=== PATIENT | male | born 1980 | race Caucasian/White ===

== ENCOUNTER 2018-01-05 16:37 | Emergency (ER) ==
[2018-01-05] MEDS ORDERED: PENICILLIN V POTASSIUM 500 MG TABLET PO ONE (17:41)
[2018-01-05] MEDS ORDERED: IBUPROFEN 800 MG TABLET PO ONE (17:41)
== END 2018-01-05 17:45 | disposition left against medical advice (07) ==
LOC: ER 16:37
DX: Z53.20 Procedure and treatment not carried out because of patient's decision for unspecified reasons (principal)

== ENCOUNTER 2018-05-15 18:05 | Emergency (ER) | payer SELFPAY ==
[2018-05-15] MEDS ORDERED: CIPROFLOXACIN HCL/DEXAMETH OTIC DROP 7.5 ML AD ONE (18:31)
[2018-05-15] MEDS ORDERED: LIDOCAINE 2% VISCOUS SOLN 20 ML UDCUP PO ONE (18:34)
--- NOTE | 2018-05-15 18:37 | ER Document Report ---
ED ENT - General Chief Complaint: Ear Pain Stated Complaint: EARACHE Time Seen by Provider: 05/15/18 18:27 Mode of Arrival: Ambulatory Information source: Patient Notes: 38-year-old male presents to ED for complaint of pain to the right ear and behind the ear starting yesterday. He states the pain has gotten him off balance. 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 Patient is alert and oriented respirations regular and unlabored speaking in full sentences and walks with a even steady gait at this time. TRAVEL OUTSIDE OF THE [place] IN LAST 30 DAYS: No - HPI Patient complains to provider of: Ear problem Onset: Yesterday Onset/Duration: Gradual Quality of pain: Other - throbbing Severity: Severe Pain Level: 5 Location of pain: Ears Associated symptoms: Ear pain Similar symptoms previously: No Recently seen / treated by doctor: No - Related Data Allergies/Adverse Reactions: No Known Allergies Allergy (Verified 05/15/18 18:07) Past Medical History - General Information source: Patient - Social History Smoking Status: Current Every Day Smoker Cigarette use (# per day): Yes - 2-3 ppd Chew tobacco use (# tins/day): No Smoking Education Provided: Yes - 4 min Frequency of alcohol use: Heavy Drug Abuse: None Lives with: Family Family History: Reviewed & Not Pertinent Patient has suicidal ideation: No Patient has homicidal ideation: No - Past Medical History Cardiac Medical History: Reports: None Pulmonary Medical History: Reports: None EENT Medical History: Reports: None Neurological Medical History: Reports: None Endocrine Medical History: Reports: None Renal/ Medical History: Reports: None Malignancy Medical History: Reports None GI Medical History: Reports: None Musculoskeletal Medical History: Reports None, Reports Hx Musculoskeletal Deformity, Reports Hx Musculoskeletal Trauma Skin Medical History: Reports None Psychiatric Medical History: Reports: None Traumatic Medical History: Reports: None Infectious Medical History: Reports: None Past Surgical History: Reports: Hx Orthopedic Surgery - left hip x 2 Review of Systems - Review of Systems Constitutional: No symptoms reported EENT: Ear pain Cardiovascular: No symptoms reported Respiratory: No symptoms reported Gastrointestinal: Nausea Genitourinary: No symptoms reported Male Genitourinary: No symptoms reported Musculoskeletal: No symptoms reported Skin: No symptoms reported Hematologic/Lymphatic: No symptoms reported Neurological/Psychological: No symptoms reported Physical Exam - Vital signs Vitals: Temp Pulse Resp BP Pulse Ox 98.1 F 80 16 112/72 96 05/15/18 18:15 05/15/18 18:15 05/15/18 18:15 05/15/18 18:15 05/15/18 18:15 Interpretation: Normal - General General appearance: Appears well, Alert - HEENT Head: Normocephalic, Atraumatic Eyes: Normal Pupils: PERRL Ears: Other - Tender with any movement to the his outer ear External canal: Erythema, Swollen Tympanic membrane: Normal Sinus: Normal Nasal: Swelling, Clear rhinorrhea Mouth/Lips: Normal Mucous membranes: Normal Pharynx: Normal Neck: Normal - Respiratory Respiratory status: No respiratory distress Chest status: Nontender Breath sounds: Normal Chest palpation: Normal - Cardiovascular Rhythm: Regular Heart sounds: Normal auscultation Murmur: No - Abdominal Inspection: Normal Distension: No distension Bowel sounds: Normal Tenderness: Nontender Organomegaly: No organomegaly - Back Back: Normal, Nontender - Extremities General upper extremity: Normal inspection, Nontender, Normal color, Normal ROM , Normal temperature General lower extremity: Normal inspection, Nontender, Normal color, Normal ROM , Normal temperature, Normal weight bearing. No: Yue's sign - Neurological Neuro grossly intact: Yes Cognition: Normal Orientation: AAOx4 [place] Coma Scale Eye Opening: Spontaneous [place] Coma Scale Verbal: Oriented [place] Coma Scale Motor: Obeys Commands [place] Coma Scale Total: 15 Speech: Normal Motor strength normal: LUE, RUE, LLE, RLE Sensory: Normal - Psychological Associated symptoms: Normal affect, Normal mood - Skin Skin Temperature: Warm Skin Moisture: Dry Skin Color: Normal Course - Re-evaluation Re-evalutation: 05/15/18 20:04 Patient was treated with Ciprodex eardrops to the right ear 4 drops. He then had viscous lidocaine into the right ear. Patient verbalized understanding of instructions to use the eardrops 4 drops twice a day and the viscous lidocaine a small amount to the ear canal every 4 hours as needed for pain. able to verbalize understanding of how to administer medication. Patient verbalized understanding of need to follow-up with the ears nose and throat on Friday by telephone to schedule a follow-up appointment. Patient was given a prescription for Zofran for his nausea. He states he has not vomited just has been nausea from the pain. Patient was discharged home with list of local doctors and ENT. - Vital Signs Vital signs: Temp Pulse Resp BP Pulse Ox 98.3 F 76 16 114/79 98 05/15/18 19:02 05/15/18 19:02 05/15/18 19:02 05/15/18 19:02 05/15/18 19:02 Discharge - Discharge Clinical Impression: Nausea Otitis externa Qualifiers: Otitis externa type: unspecified type Chronicity: acute Laterality: right Qualified Code(s): H60.501 - Unspecified acute noninfective otitis externa, right ear Condition: Stable Disposition: HOME, SELF-CARE Additional Instructions: OTITIS EXTERNA: You have otitis externa -- an infection of the outer ear canal. This can be very painful. It's sometimes called "swimmer's ear," because it often occurs after prolonged water exposure. Many things, such as earwax and dirt in the ear, can contribute to it. The usual treatment is antibiotic/antiinflammatory ear drops. Occasionally , a wick will be placed in the ear to draw in the medicine. If the infection is severe, an oral antibiotic may be prescribed. Pain medication is often needed. Avoid getting water in the ear. Outer ear infections often take longer to heal than you might expect. Some tenderness and ache in the ear may persist for about two weeks. See your physician if you fail to improve as expected. Call the doctor at once if you develop fever, increasing swelling (particularly if it makes your ear "poke out"), severe headache, stiff neck, or decreased hearing. USE OF EAR DROPS: Your ear drops won't do much good if they don't get all the way in. To help the ear drops penetrate all the way to the ear drum, use the following technique. If you encounter problems of any kind, notify the physician. (1) Lay your head sideways on a pillow. (2) Place the dropper tip just barely inside the ear canal, almost touching the bottom side of the canal. The liquid is tolerated better on the bottom of the canal. (3) Squeeze out the appropriate amount of medicine, and remove the dropper. (4) Grab the back of the ear (just behind the ear canal) between your index finger and thumb. (5) Tug up, then let the ear drop back. Repeat several times. This pumps the medicine down. (6) Wait five minutes, then place a cotton ball in the ear canal to catch and hold the medicine. CIPROFLOXACIN: You have been given an antibacterial agent, ciprofloxacin (Cipro). This medicine is not related to the penicillins, sulfas, cephalosporins, or tetracyclines. It is often given to patients who are allergic to these drugs. It has been chosen for you either because other drugs are not appropriate, or because of the nature of your problem. Cipro should not be taken with antacids, as these can decrease its effectiveness. It can be taken without regard to meals. CIPRO SHOULD NOT BE TAKEN BY CHILDREN, NURSING WOMEN, OR WOMEN. Although Cipro is usually well-tolerated, common side effects can include nausea and diarrhea. Contact your doctor if you experience any unusual symptoms while on this medication, such as joint pain or swelling, shortness of breath, wheezing, faintness, or hives. USE OF ACETAMINOPHEN (Tylenol): Acetaminophen may be taken for pain relief or fever control. It's much safer than aspirin, offering a wider range of "safe" dosages. It is safe during . Some brand names are Tylenol, Panadol, Datril, Anacin 3, Tempra, and Liquiprin. Acetaminophen can be repeated every four hours. The following are maximum recommended dosages: WEIGHT Dose Drops Elixir Chewable( 80mg) (LBS.) drprs=droppers tsp=teaspoon 6 40 mg 0.4 ml (1/2) 6-11 80 mg 0.8 ml (full) tsp 1 tab 12-16 120 mg 1 1/2 drprs 3/4 tsp 1 1/2 tabs 17-23 160 mg 2 drprs 1 tsp 2 tabs 24-30 240 mg 3 drprs 1 1/2 tsp 3 tabs 30-35 320 mg 2 tsp 4 tabs 36-41 360 mg 2 1/4 tsp 4 1/2 tabs 42-47 400 mg 2 1/2 tsp 5 tabs 48-53 480 mg 3 tsp 6 tabs 54-59 520 mg 3 1/4 tsp 6 1/2 tabs 60-64 560 mg 3 1/2 tsp 7 tabs 65-70 600 mg 3 3/4 tsp 7 1/2 tabs 71-76 640 mg 4 tsp 8 tabs 77-82 720 mg 4 1/2 tsp 9 tabs 83-88 800 mg 5 tsp 10 tabs >89 pounds or adults 650 mg to 900 mg Acetaminophen can be repeated every four hours. Maximum dose not to exceed 4000 mg a day. These maximum recommended dosages are slightly higher than the dosages written on the product container, but these dosages are very safe and below the toxic dosage for acetaminophen. Nausea or Vomiting, Nonspecific Vomiting (or nausea without vomiting) can be caused by many different problems. Of course, it can mean that something's wrong with the stomach, such as "stomach flu," ulcers, or inflammation. But it can also be a symptom of a problem that has nothing to do with the stomach or intestines. Vomiting is common with severe headaches, earaches, and tonsillitis. We see it with pneumonia or heart attacks. Drugs can cause nausea. Many abdominal problems cause vomiting; for example, gallstones, kidney stones, pancreatitis, and intestinal obstruction (blocked bowels). In most cases, curing the vomiting depends on fixing the problem that caused it. For temporary relief, we may use an anti-nausea medicine. For home use, we can prescribe suppositories, chewable pills, pills that dissolve in the mouth, or liquid anti-nausea drugs. If the vomiting seems to be caused by a problem in the stomach, acid-suppressing drugs may be prescribed as well. It's important to avoid dehydration. Sip clear liquids. Take increasing amounts of fluid over the first 24 hours. Then start small amounts of bland foods (such as dry toast, applesauce, mashed potato). Avoid aspirin, tobacco, and alcohol. Gradually resume your usual diet. If the vomiting worsens, if the problem that's making you vomit worsens, or if there's evidence of bleeding in the stomach (such as black, tarry stool, bloody or black vomit, or lightheadedness), you should return immediately. Call your doctor if you aren't improved in 24 to 36 hours. Antinausea Medication You have been given a medication to suppress nausea and vomiting. This type of medication can be given as a shot, pill, or suppository. It will usually last for many hours. Pills and shots usually last six to eight hours, suppositories last about 12 hours. For the typical illness, only one or two doses of the medication may be necessary. Mild lightheadedness may occur. This type of medicine can cause drowsiness. Do not drive or operate dangerous machinery while under its influence. Do not mix with alcohol. See your doctor at once if you have muscle spasms or tightness, or uncontrollable motions (particularly of the neck, mouth, or jaw). Persistent vomiting or severe lightheadedness should also be evaluated by the physician. FOLLOW-UP CARE: If you have been referred to a physician for follow-up care, call the physician s office for an appointment as you were instructed or within the next two days. If you experience worsening or a significant change in your symptoms, notify the physician immediately or return to the Emergency Department at any time for re-evaluation. Prescriptions: Ondansetron HCl [Zofran 8 mg Tablet] 8 mg PO Q8HP PRN #30 tablet PRN Reason: Ciprofloxacin HCl/Dexameth [Ciprodex Otic Suspension 7.5 ml Bottle] 4 drop RT_ EAR BID #1 bottle Forms: Smoking Cessation Education, Return to Work Referrals: ISAMAR MORRIS DO [ASSOCIATE] - Follow up as needed
[2018-05-15 19:06] VITALS: BP 114/79
== END 2018-05-15 19:06 | disposition home or self-care (01) ==
LOC: ER 18:05
DX: H60.501 Unspecified acute noninfective otitis externa, right ear (principal); R11.0 Nausea; H92.01 Otalgia, right ear; F17.210 Nicotine dependence, cigarettes, uncomplicated
CPT/HCPCS: 99406; 99282; J3490 ×2

== ENCOUNTER 2018-09-03 17:28 | Emergency (ER) | payer SELFPAY ==
--- NOTE | 2018-09-03 17:35 | ER Document Report ---
ED General - General Stated Complaint: POSSIBLE OVERDOSE Time Seen by Provider: 09/03/18 17:31 TRAVEL OUTSIDE OF THE [place] IN LAST 30 DAYS: No - HPI Notes: Patient is a 38-year-old male that presents to the emergency department for chief complaint of overdose. Patient was dropped off at the front door by a girlfriend stating that he overdosed. Patient was apneic and unresponsive at presentation. After 8 mg IV Narcan he had returned to spontaneous respirations and mentation. He states he snorted what he believed was cocaine. He has no current complaints Past Medical History: Negative Past Surgical History: Negative Social History: Cocaine abuse, opiate abuse, Daily tobacco, occasional alcohol Family History: Reviewed and noncontributory for presenting illness Allergies: Reviewed, see documented allergy list. REVIEW OF SYSTEMS: CONSTITUTIONAL : No fever No chills No diaphoresis No recent illness EENT: No vision changes No congestion No sore throat CARDIOVASCULAR: No chest pain No palpitations RESPIRATORY: No shortness of breath No cough No difficulty breathing GASTROINTESTINAL: No abdominal pain No nausea No vomiting No diarrhea GENITOURINARY: No dysuria No hematuria No difficulty urinating MUSCULOSKELETAL: No back pain No leg pain No arm pain SKIN: No rashes No lesions LYMPHATIC: No swollen, enlarged glands. NEUROLOGICAL: No lightheadedness No headache No weakness No paresthesias PSYCHIATRIC: No anxiety No depression PHYSICAL EXAMINATION: Vital signs reviewed, nursing noted reviewed. GENERAL: Well-appearing, well-nourished and in no acute distress. HEAD: Atraumatic, normocephalic. EYES: Pinpoint bilaterally, extraocular movements intact, sclera anicteric, conjunctiva are injected. ENT: nares patent, oropharynx clear without exudates. Moist mucous membranes. NECK: Normal range of motion, supple without lymphadenopathy LUNGS: Breath sounds clear to auscultation bilaterally and equal. No wheezes rales or rhonchi. HEART: Tachycardic and regular rhythm without murmurs ABDOMEN: Soft, nontender, normoactive bowel sounds. No rebound, guarding, or rigidity. No masses appreciated. EXTREMITIES: Nontender, good range of motion, no pitting or edema. NEUROLOGICAL: No focal neurological deficits. Moves all extremities spontaneously Motor and sensory grossly intact on exam. PSYCH: Normal mood, normal affect. SKIN: Warm, Dry, normal turgor, no rashes or lesions noted on exposed skin - Related Data Allergies/Adverse Reactions: No Known Allergies Allergy (Verified 09/03/18 17:30) Past Medical History - Social History Smoking Status: Current Every Day Smoker Family History: Reviewed & Not Pertinent Renal/ Medical History: Denies: Hx Peritoneal Dialysis Musculoskeletal Medical History: Reports Hx Musculoskeletal Deformity, Reports Hx Musculoskeletal Trauma Past Surgical History: Reports: Hx Orthopedic Surgery - left hip x 2 Physical Exam - Vital signs Vitals: BP 132/94 H 09/03/18 17:30 Course - Re-evaluation Re-evalutation: 09/03/18 17:33 Vitals reviewed. Nursing notes reviewed. Patient presented apneic with a GCS of 3, he had great dusky skin. He was started on bag valve ventilation with nasal airway, his oxygenation quickly improved to 99% and skin tone returned to normal. After 8 mg IV Narcan patient woke up and reported that he snorted drugs. He believed it was cocaine. Patient likely snorted fentanyl or heroin given his response to Narcan and clinical presentation. He was placed on telemetry monitoring. He currently has a GCS of 15 and is oxygenating well on room air. He is in no acute distress. He will be monitored in the ER 09/03/18 18:14 Patient has remained stable while he was in the emergency room. He is awake and conversational. His girlfriend is at bedside now. 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 He now does state that he knew it was heroin when he snorted it. Patient's girlfriend states they have Narcan at home. Patient does not wish to stay for monitoring. He has capacity to understand his medical decision making. Patient was told that his Narcan may wear off before the hair when he ingested which could result in him becoming unresponsive again. Him and the girlfriend are made aware of this. Girlfriend states she has Narcan at home and will watch him and not allow him to go to sleep. She states she will give him Narcan and call 911 if he becomes unresponsive again. Patient would like to leave AGAINST MEDICAL ADVICE. After performing a Medical Screening Examination, I spoke with the patient at length in regards to leaving the hospital against medical advice. I discussed evaluation for their presenting complaint and recommended further evaluation. I do not believe the patient should leave but the patient is alert oriented x4, understands the risks and benefits of staying and leaving including disability and . Pt understands that they can return at any time for further care and is more than welcome to do so. Pt verbalizes this understanding. - Vital Signs Vital signs: Temp Pulse Resp BP Pulse Ox 20 128/84 H 99 09/03/18 17:46 09/03/18 17:46 09/03/18 17:46 Critical Care Note - Critical Care Note Total time excluding time spent on procedures (mins): 35 Comments: Patient apneic and unresponsive at presentation. Respiratory status stabilized. Potential for respiratory decompensation. Frequent re-evaluations. Discharge - Discharge Clinical Impression: Opiate overdose Qualifiers: Encounter type: initial encounter Injury intent: accidental or unintentional Qualified Code(s): T40.601A - Poisoning by unspecified narcotics, accidental (unintentional), initial encounter Condition: Stable Disposition: HOME, SELF-CARE Instructions: Overdose ([facility]) Additional Instructions: Please return to the emergency department if you have any worsening, or concern of your symptoms. Please return to the emergency department if you develop chest pain, difficulty breathing, severe abdominal pain, or ongoing vomiting. Please follow-up with your primary care physician in 2-3 days and any other recommended physicians. If prescribed, take all medications as directed. If you have any questions or concerns do not hesitate to return the emergency department for evaluation. Do not snort or inject any controlled substances including cocaine or heroin Forms: Smoking Cessation Education Referrals: [facility] [Provider Group] - Follow up as needed [facility] [Provider Group] - Follow up as needed
[2018-09-03] MEDS ORDERED: NALOXONE HCL INJ 2 MG/2 ML DISP.SYRIN ONE (17:36)
[2018-09-03 17:57] VITALS: BP 128/84
== END 2018-09-03 17:58 | disposition home or self-care (01) ==
LOC: ER 17:28
DX: T40.5X1A Poisoning by cocaine, accidental (unintentional), initial encounter (principal); X58.XXXA Exposure to other specified factors, initial encounter; F17.200 Nicotine dependence, unspecified, uncomplicated
CPT/HCPCS: 99285

== ENCOUNTER 2018-09-22 17:24 | Emergency (ER) | payer SELFPAY ==
[2018-09-22] MEDS ORDERED: NORMAL SALINE 1000 ML 1,000 ML IV ONE (17:26)
[2018-09-22] MEDS ORDERED: NALOXONE HCL INJ 2 MG/2 ML DISP.SYRIN IV ONE (17:27)
--- NOTE | 2018-09-22 17:34 | ER Document Report ---
ED General - General Chief Complaint: Possible Overdose Stated Complaint: POSSIBLE OD Time Seen by Provider: 09/22/18 17:26 TRAVEL OUTSIDE OF THE [place] IN LAST 30 DAYS: No - HPI Patient complains to provider of: Overdose Notes: Patient was brought to the ER by private vehicle arrived in the ambulance bay tanker driver of vehicle was apparently being on the annulus by doors our staff found the patient slumped over mcrae passenger side tanker driver of vehicle did indicate to our staff that the patient had an overdose more likely of heroin. Patient was placed on the stretcher and then taken to the trauma bay #1 this is where I made first contact with the patient patient skin color was mcrae patient was to be apneic with pinpoint pupils. Resuscitation efforts were initiated patient was g iven supplemental oxygen via a BVM by myself patient was placed on the monitor and IV administration of Narcan was initiated by nursing staff. We did remove the patient's clothing to evaluate the patient further. During the bagging process the patient's skin color did improve Patient was given 2 mg of Narcan. Patient did respond appropriately waking up. At this time patient denying that he used any heroin. Patient states he did use IV drugs in the past however is not used anything recently. Patient otherwise was monitored and examination continued - Related Data Allergies/Adverse Reactions: No Known Allergies Allergy (Verified 09/03/18 17:30) Past Medical History - Social History Smoking Status: Current Every Day Smoker Chew tobacco use (# tins/day): No Frequency of alcohol use: Occasional Family History: Reviewed & Not Pertinent Patient has suicidal ideation: No Patient has homicidal ideation: No Renal/ Medical History: Denies: Hx Peritoneal Dialysis Musculoskeletal Medical History: Reports Hx Musculoskeletal Deformity, Reports Hx Musculoskeletal Trauma Past Surgical History: Reports: Hx Orthopedic Surgery - left hip x 2 Review of Systems - Review of Systems Constitutional: Other - Overdose EENT: No symptoms reported Cardiovascular: No symptoms reported Respiratory: No symptoms reported Gastrointestinal: No symptoms reported Genitourinary: No symptoms reported Male Genitourinary: No symptoms reported Musculoskeletal: No symptoms reported Skin: No symptoms reported Hematologic/Lymphatic: No symptoms reported Neurological/Psychological: No symptoms reported -: Yes All other systems reviewed and negative Physical Exam - Vital signs Vitals: Resp Pulse Ox 18 97 09/22/18 17:30 09/22/18 17:30 Interpretation: Normal - General General appearance: Appears well, Alert - HEENT Head: Normocephalic, Atraumatic Eyes: Normal Pupils: PERRL - Respiratory Respiratory status: No respiratory distress Chest status: Nontender Breath sounds: Normal Chest palpation: Normal - Cardiovascular Rhythm: Regular Heart sounds: Normal auscultation Murmur: No - Abdominal Inspection: Normal Distension: No distension Bowel sounds: Normal Tenderness: Nontender Organomegaly: No organomegaly - Back Back: Normal, Nontender - Extremities General upper extremity: Normal inspection, Nontender, Normal color, Normal ROM, Normal temperature General lower extremity: Normal inspection, Nontender, Normal color, Normal ROM, Normal temperature, Normal weight bearing. No: Yue's sign - Neurological Neuro grossly intact: Yes Cognition: Normal Orientation: AAOx4 [place]a Coma Scale Eye Opening: Spontaneous [place] Coma Scale Verbal: Oriented [place] Coma Scale Motor: Obeys Commands [place]ell Coma Scale Total: 15 Speech: Normal Motor strength normal: LUE, RUE, LLE, RLE Sensory: Normal - Psychological Associated symptoms: Normal affect, Normal mood - Skin Skin Temperature: Warm Skin Moisture: Dry Skin Color: Normal Notes: Heavily tattooed Course - Re-evaluation Re-evalutation: 09/22/18 18:32 Patient continued to deny any opiate or heroin use. [facility] that showed an overdose in August at which time the patient did leave AGAINST MEDICAL ADVICE or very soon after patient received Narcan. Upon initially waking the patient up with Narcan patient did agree to stay for further evaluation nursing staff that explained to me that the patient is reques ting leave the reevaluate the with the patient the explained to the patient that he would have with our intervention more likely this was due to underlying heroin or opiate use and abuse. Patient stated understanding however states that he is a no x3 able to give me the date president and where he is at requesting to be discharged. At this time patient understands that the Narcan does not last forever and if he does have a long opiate in his system that he can become apneic not breathe resulting in patient states understanding of this they would make medical decision patient was signed out AGAINST MEDICAL ADVICE - Vital Signs Vital signs: Temp Pulse Resp BP Pulse Ox 18 122/96 H 97 09/22/18 17:30 09/22/18 17:44 09/22/18 17:30 - Laboratory Laboratory results interpreted by me: 09/22/18 17:26 POC Glucose 126 H Critical Care Note - Critical Care Note Total time excluding time spent on procedures (mins): 35 Comments: Time spent direct evaluation of the patient coming in for an overdose restored distress requiring bag valve ventilation until Narcan could be administered Discharge - Discharge Clinical Impression: Respiratory distress due to overdose Overdose Qualifiers: Encounter type: initial encounter Injury intent: accidental or unintentional Qualified Code(s): T50.901A - Poisoning by unspecified drugs, medicaments and biological substances, accidental (unintentional), initial encounter Condition: Good Disposition: HOME, SELF-CARE Instructions: Instructions for Home Care Following a Drug Overdose ([facility]), Overdose ([facility]) Additional Instructions: You almost today. When you arrived to the ER you were not breathing your skin was mcrae and you barely had a pulse. We were able to give you a medication called Narcan. This medication is used for opiate overdoses such as heroin. Please avoid using any illicit drugs Drink plenty of fluids
[2018-09-22 17:49] VITALS: BP 122/96
== END 2018-09-22 17:49 | disposition home or self-care (01) ==
LOC: ER 17:24
DX: T50.901A Poisoning by unspecified drugs, medicaments and biological substances, accidental (unintentional), initial encounter (principal); Y92.9 Unspecified place or not applicable; Z53.21 Procedure and treatment not carried out due to patient leaving prior to being seen by health care provider; F17.200 Nicotine dependence, unspecified, uncomplicated
CPT/HCPCS: 99285; 96374; 82962; J2310

== ENCOUNTER 2018-09-26 16:00 | Emergency (ER) | payer SELFPAY ==
[2018-09-26] MEDS ORDERED: NALOXONE HCL INJ 2 MG/2 ML DISP.SYRIN ONE (16:06)
--- NOTE | 2018-09-26 16:11 | ER Document Report ---
ED General - General Mode of Arrival: Carried Information source: Patient, Relative TRAVEL OUTSIDE OF THE [place] IN LAST 30 DAYS: No - General Chief Complaint: Overdose Stated Complaint: POSSIBLE OVERDOSE Time Seen by Provider: 09/26/18 16:00 Notes: Patient is a 38 year old male with depression, anxiety, bipolar disorder and a history of opioid abuse presents to the emergency department due to an heroin overdose. Patient was initially unresponsive and apneic upon arrival. According to at bedside, the patient has been 1 year clean of drug abuse but recently started using again 1 month ago. She states the patient injected the heroin in his arm and and states he did so because he was "sick". states the patient has an appointment with a suboxone clinic next week. When the patient awakens, he states he does not remember how much heroin he injected and further states he does not know why he injected. He denies suicidal ideation. Of significance, patient was seen in this emergency department 3x within a month due to similar issues. (BRANDO HELMS) - Related Data Allergies/Adverse Reactions: No Known Allergies Allergy (Verified 09/26/18 16:10) Past Medical History - General Information source: Patient - Social History Smoking Status: Unknown if Ever Smoked Drug Abuse: Heroin Family History: Reviewed & Not Pertinent Musculoskeletal Medical History: Reports Hx Musculoskeletal Deformity, Reports Hx Musculoskeletal Trauma Past Surgical History: Reports: Hx Orthopedic Surgery - left hip x 2 Review of Systems - Review of Systems Constitutional: No symptoms reported EENT: No symptoms reported Cardiovascular: No symptoms reported Respiratory: No symptoms reported Gastrointestinal: No symptoms reported Genitourinary: No symptoms reported Male Genitourinary: No symptoms reported Musculoskeletal: No symptoms reported Skin: No symptoms reported Hematologic/Lymphatic: No symptoms reported Neurological/Psychological: No symptoms reported -: Yes All other systems reviewed and negative Physical Exam - Vital signs Vitals: Resp Pulse Ox 13 89 L 09/26/18 16:02 09/26/18 16:02 - Notes Notes: GENERAL: Initially unresponsive and apenic. After administering 2nd doses of Narcan, patient began to have spontaneous respirations. HEAD: Normocephalic, atraumatic. EYES: Pupils equal, pinpoint, and minimally reactive to light. Extraocular movements intact. ENT: Oral mucosa moist, tongue midline. NECK: Full range of motion. Supple. Trachea midline. LUNGS: Initially apneic. After 2nd dose of narcan, became tachypneic. Clear to auscultation bilaterally, no wheezes, rales, or rhonchi. No respiratory distress. HEART: Tachycardic. No murmurs, gallops, or rubs. ABDOMEN: Soft, non-tender. Non-distended. Hyperactive bowel sounds. EXTREMITIES: Initially not moving. After 2nd dose of narcan, moves all 4 extremities spontaneously. No edema. NEUROLOGICAL: Initially unresponsive, after receiving 2nd dose of narcan becomes alert and oriented x3. Normal speech. Biceps and patellar DTRs 2+ bilaterally. PSYCH: Became irritated after a few minutes of becoming alert. SKIN: Lips initially cyanotic. (BRANDO HELMS) Course - Re-evaluation Re-evalutation: 09/26/18 16:12 Patient came in apneic and cyanotic but had a strong pulse, he was given 2 mg of Narcan IM with no effect, patient did have rescue breathing initiated with a bag valve mask, he had return of normal color, IV access is obtained, another 2 mg of Narcan was given IV, patient then rapidly awakened, became alert, oriented, told me that he only take the Narcan in order to stop being sick from heroin withdrawals. They do have 2 autoinjectors of Narcan 4 mg apiece at home that they got from [facility]. He has an appointment with the [facility] clinic in the next 1-2 weeks. Patient is now quite irritated, does not wish to stay, he was counseled on the risks of Narcan wearing off before the heroin is out of his system. Counseled to stay in the emergency department for observation for the next hour, he refuses and his who is at bedside states she will drive him home and stay with him for the next hour, states they have Narcan autoinjectors at home and she will keep him awake for the next hour, states that they are aware that if the Narcan wears off he could . States that she will give him the Narcan at home if he falls asleep. Patient is discharged to home. Acknowledges the risks of . Patient denies suicidal intent. Patient does not meet IVC criteria. (REMY PARRISH) - Vital Signs Vital signs: Temp Pulse Resp BP Pulse Ox 17 124/92 H 100 09/26/18 16:11 09/26/18 16:11 09/26/18 16:11 - EKG Interpretation by Me Additional EKG results interpreted by me: 09/26/18 16:18 EKG shows sinus tachycardia at a rate of 102 bpm, normal axis, IVCD 132, atypical RBBB, slight ST segment depression in V4-V6, LVH, no ST elevations per my interpretation. (REMY PARRISH) Critical Care Note - Critical Care Note Total time excluding time spent on procedures (mins): 5 Discharge - Discharge Clinical Impression: Accidental heroin overdose Qualifiers: Encounter type: initial encounter Qualified Code(s): T40.1X1A - Poisoning by heroin, accidental (unintentional), initial encounter Condition: Fair Disposition: HOME, SELF-CARE Additional Instructions: You overdosed on heroin. The Narcan that we used here could wear off before the heroin is out of your system. I strongly recommend that you stay in the hospital for the next hour however you have chosen to go home. You are going home with your , your has Narcan at home. She needs to stay with you and keep you awake for the next hour. If the Narcan wears off and you go to sleep she should give you the Narcan and call 911. Please return to the emergency department at any time for more help. Scribe Attestation: 09/27/18 01:04 I personally performed the services described in the documentation, reviewed and edited the documentation which was dictated to the scribe in my presence, and it accurately records my words and actions. (REMY PARRISH) Scribe Documentation - Scribe Written by Ramiro:: Ramiro Reed, 09/26/2018 16:45 acting as scribe for :: Alejandra
[2018-09-26] MEDS ORDERED: NALOXONE HCL INJ 2 MG/2 ML DISP.SYRIN IM ONE (16:16)
[2018-09-26] MEDS ORDERED: NALOXONE HCL INJ 2 MG/2 ML DISP.SYRIN IV ONE (16:16)
[2018-09-26 16:47] VITALS: BP 124/92
--- NOTE | 2018-09-27 16:42 | EKG REPORT ---
SEVERITY:- ABNORMAL ECG - SINUS TACHYCARDIA IVCD, CONSIDER ATYPICAL RBBB : Confirmed by: Arya James MD 27-Sep-2018 16:41:50
== END 2018-09-26 16:15 | disposition home or self-care (01) ==
LOC: ER 16:00
DX: T40.1X1A Poisoning by heroin, accidental (unintentional), initial encounter (principal); R00.0 Tachycardia, unspecified
CPT/HCPCS: 93005; 99284; 96374; 93010; J2310